=== PATIENT | male | born 1965 | race Caucasian/White ===

== ENCOUNTER 2022-09-03 22:56 | Emergency (ER) | payer SELFPAY ==
[~2022-09-03] VITALS: Ht 167.6 cm; Wt 82.0 kg
[2022-09-04 00:32] LABS: BASOPHILS % 0.4 % (0.0-2.0); EOSINOPHILS % 1.8 % (0.0-5.0); HEMATOCRIT. 45.1 % (42.0-52.0); HEMOGLOBIN. 15.2 g/dL (14.0-18.0); LYMPHOCYTES % 37.5 % (20.0-50.0); MEAN CORPUSCULAR HEMOGLOBIN 30.5 pg (28.0-32.0); MEAN CORPUSCULAR VOLUME 90.3 fL (80.0-94.0); MEAN PLATELET VOLUME 7.3 fl (7.4-10.4); MONOCYTES % 7.1 % (2.0-8.0); NEUTROPHILS % 53.2 % (40.0-76.0); PLATELET 395 x1000/uL (130-400); RED BLOOD CELL COUNT 4.99 mill/uL (4.7-6.1); RED CELL DISTRIBUTION WIDTH 15.9 % (11.6-14.6)
[2022-09-04 00:40] LABS: CHLORIDE 110 mEq/L (98-107)
[2022-09-04 01:09] LABS: ETHANOL BLOOD 586 mg/dL
[2022-09-04 06:00] VITALS: BP 128/76
== END 2022-09-04 12:29 | disposition home or self-care (01) ==
LOC: EDBD 23:05 → ER 23:05
DX: R52 Pain, unspecified (principal)
CPT/HCPCS: 36415; 80053; 80320; 82962; 85025; 99285; G0480